=== PATIENT | female | born 1945 ===

== ENCOUNTER 2020-11-23 08:27 | Day surgery (SDC) | payer OTHER ==
[~2020-11-23 08:27] MED LIST: TOPROL XL100 M1 PO
[2020-11-23] MEDS ORDERED: PERCOCET 5-3251 EACH PO (13:05)
[2020-11-23] MEDS ORDERED: DERMOPLAST PAIN78 GM TOP (13:06)
[2020-11-23] MEDS ORDERED: NEURONTIN300 MG PO (13:06)
== END 2020-11-23 16:25 | disposition home or self-care (01) ==
LOC: CIR.AMB 08:27
PROVIDERS: ATTEND Surgery
DX: K64.4 Residual hemorrhoidal skin tags (principal); K64.8 Other hemorrhoids; Z20.822 Contact with and (suspected) exposure to COVID-19